=== PATIENT | male | born 1960 | race Caucasian/White ===

== ENCOUNTER 2016-10-19 21:14 | Emergency (ER) | payer MEDICARE ==
[~2016-10-19] VITALS: Ht 177.8 cm; Wt 91.6 kg
[~2016-10-19 21:14] MED LIST: ALBUTEROL0.09 MG/A2 IH; AMBIEN10 M1 PO; AMOXICILLIN500 MG PO; ASMANEX220 MCG INH; ASPIRIN81 M1 PO; AVELOX400 MG PO; CLARITIN10 MG PO; COMBIVENT1 AR1 IH; COMBIVENT1 ARO IH; CYMBALTA60 MG PO; DAYPRO600 M1 PO; DEXILANT60 MG PO; FISH OIL1 IU PO; FLOVENT0.22 MG/AC IH; IMDUR30 MG PO; ISOSORBIDE DINI30 MG PO; LEVAQUIN750 M1 PO; LOPRESSOR50 M1 PO; LORAZEPAM0.5 MG PO; MEDROL DOSEPAK4 MG PO; METOPROLOL TART50 M1 PO; MOTRIN800 MG PO; NAPROSYN500 MG PO; NITROSTAT0.4 MG PO; NITROSTAT0.4 MG SL; NORCO 325 MG-51 TAB PO; NOVAPLUS V0.09 MG/Ac IH; PARAFON FORTE500 MG PO; PRAVACHOL40 MG PO; PREDNICOT20 MG PO; PREDNISONE50 MG PO; PREVACID30 MG PO; PRILOSEC40 M1 PO; PRILOSEC40 MG PO; PROPAFENONE HC150 MG PO; ROBAXIN750 MG PO; SKELAXIN800 MG PO; TYLENOL325 M1 PO; VENTOLIN 02.5 MG/3 M INH; VIBRAMYCIN100 MG PO; VICODIN 5/500 505 MG; VICODIN 500 MG-1 TAB PO; ZITHROMAX Z PA250 MG PO
[2016-10-19 21:25] VITALS: BP 148/90
[2016-10-19] MEDS ORDERED: AUGMENTIN 875-875 MG PO (22:45)
== END 2016-10-19 22:05 | disposition home or self-care (01) ==
LOC: ED 21:14
DX: S61.250A Open bite of right index finger without damage to nail, initial encounter (principal); Z88.0 Allergy status to penicillin; Z88.1 Allergy status to other antibiotic agents; Z79.82 Long term (current) use of aspirin; Z79.899 Other long term (current) drug therapy; W54.0XXA Bitten by dog, initial encounter; Y93.9 Activity, unspecified; Y92.9 Unspecified place or not applicable; Y99.9 Unspecified external cause status

== ENCOUNTER 2017-02-28 17:53 | Emergency (ER) | payer MEDICARE ==
[~2017-02-28] VITALS: Ht 177.8 cm; Wt 90.7 kg
[~2017-02-28 17:53] MED LIST changes: +AUGMENTIN 875-875 MG PO
[2017-02-28 17:57] VITALS: BP 146/88
[2017-02-28] MEDS ORDERED: ELIQUIS5 M1 PO (17:57)
[2017-02-28 18:26] LABS: BASO % 0.4 % (0.0-1.0); EOS # 0.1 10*3/uL (0.0-0.4); EOS % 1.4 % (1.0-4.0); HEMATOCRIT 45.7 % (42.0-52.0); HEMOGLOBIN 15.1 g/dl (14.0-18.0); LYMPH # 1.6 10*3/uL (1.3-4.4); LYMPH % 22.5 % (27.0-41.0); MEAN CELL VOLUME 90.1 fl (80.0-94.0); MEAN CORPUSCULAR HGB 29.8 pg (27.0-31.0); MEAN PLATELET VOLUME 11.6 fl (9.6-12.3); MONO # 0.4 10*3/uL (0.1-1.0); MONO % 6.2 % (3.0-9.0); NEUT % 69.2 % (47.0-73.0); PLATELET COUNT AUTOMATED 207 10*3/uL (130-400); RED BLOOD COUNT 5.07 10*6/uL (4.50-5.90); RED CELL DISTRI WIDTH 14.2 % (0-14.5); WHITE BLOOD COUNT 7.2 10*3/uL (4.8-10.8)
[2017-02-28 18:49] LABS: ALBUMIN 3.5 gm/dl (3.1-4.5); BILIRUBIN, TOTAL 0.5 mg/dl (0.2-1.0); BUN 11 mg/dl (7-24); CARBON DIOXIDE 28 mmol/L (21-32); CHLORIDE 110 mmol/L (98-107); EST GLOM FILT AFRICAN AMERICAN > 60 ml/min; GLUCOSE 89 mg/dL (65-99); SGOT/AST 19 IU/L (3-35); SGPT/ALT 22 U/L (12-78); SODIUM 144 mmol/L (136-145); TOTAL PROTEIN 6.4 gm/dL (6.4-8.2); URIC ACID 7.7 mg/dL (3.5-7.2)
[2017-02-28 18:52] LABS: ALKALINE PHOSPHATASE 81 U/L (45-117)
[2017-02-28] MEDS ORDERED: PREDNISONE20 M1 PO (19:01)
== END 2017-02-28 18:13 | disposition home or self-care (01) ==
LOC: ED 17:53
PROVIDERS: Registered Nurse
DX: M10.9 Gout, unspecified (principal); R60.9 Edema, unspecified; Z90.49 Acquired absence of other specified parts of digestive tract; Z79.899 Other long term (current) drug therapy; Z79.82 Long term (current) use of aspirin; Z88.3 Allergy status to other anti-infective agents; Z88.0 Allergy status to penicillin; Z88.1 Allergy status to other antibiotic agents

== ENCOUNTER 2017-03-05 13:49 | Emergency (ER) | payer MEDICARE ==
[~2017-03-05] VITALS: Wt 90.7 kg
[~2017-03-05 13:49] MED LIST changes: +ELIQUIS5 M1 PO; +PREDNISONE20 M1 PO
[2017-03-05 13:55] VITALS: BP 139/76
[2017-03-05] MEDS ORDERED: CLARITIN10 MG PO (14:57)
== END 2017-03-05 15:04 | disposition home or self-care (01) ==
LOC: ED 13:49
DX: J06.9 Acute upper respiratory infection, unspecified (principal); M10.9 Gout, unspecified; J44.9 Chronic obstructive pulmonary disease, unspecified; Z88.0 Allergy status to penicillin; Z88.1 Allergy status to other antibiotic agents; Z79.82 Long term (current) use of aspirin; Z79.899 Other long term (current) drug therapy

== ENCOUNTER → 2017-09-08 | Emergency (ER) | payer MEDICARE ==
[~2017-09-08] VITALS: Ht 177.8 cm; Wt 90.7 kg
[~2017-09-08] MED LIST changes: +Zofran4 MG PO
[2017-09-08 11:11] VITALS: BP 109/66
[2017-09-08 12:06] LABS: HEMATOCRIT 48.6 % (42.0-52.0); HEMOGLOBIN 16.5 g/dl (14.0-18.0); MEAN CELL VOLUME 88.5 fl (80.0-94.0); MEAN CORPUSCULAR HGB 30.1 pg (27.0-31.0); MEAN PLATELET VOLUME 11.8 fl (9.6-12.3); PLATELET COUNT AUTOMATED 178 10*3/uL (130-400); RED BLOOD COUNT 5.49 10*6/uL (4.50-5.90); RED CELL DISTRI WIDTH 14.1 % (0-14.5)
[2017-09-08 12:22] LABS: ALBUMIN 3.7 gm/dl (3.1-4.5); ALKALINE PHOSPHATASE 91 U/L (45-117); BUN 15 mg/dl (7-24); CHLORIDE 108 mmol/L (98-107); CREATININE 1.14 mg/dL (0.70-1.30); LIPASE 109 U/L (73-393); POTASSIUM 4.1 mmol/L (3.5-5.1); SGOT/AST 14 IU/L (3-35); SGPT/ALT 21 U/L (12-78); SODIUM 143 mmol/L (136-145); TOTAL PROTEIN 6.9 gm/dL (6.4-8.2)
[2017-09-08 12:29] LABS: TOTAL CELLS COUNTED 100 #CELLS
[2017-09-08 12:30] LABS: PLATELET SUFFICIENCY NORMAL (NORMAL)
== END ==
LOC: ED 11:01
PROVIDERS: Physician Assistant
DX: K52.9 Noninfective gastroenteritis and colitis, unspecified (principal); Z88.0 Allergy status to penicillin; Z88.1 Allergy status to other antibiotic agents; Z88.8 Allergy status to other drugs, medicaments and biological substances; Z79.82 Long term (current) use of aspirin; Z79.899 Other long term (current) drug therapy; Z90.49 Acquired absence of other specified parts of digestive tract

== ENCOUNTER 2018-02-05 12:05 | Inpatient (IN) | payer MEDICARE ==
[~2018-02-05] VITALS: Ht 177.8 cm; Wt 90.7 kg
[2018-02-05 12:13] VITALS: BP 130/82
[2018-02-05 12:40] LABS: HEMATOCRIT 52.2 % (42.0-52.0); HEMOGLOBIN 17.7 g/dl (14.0-18.0); MEAN CELL VOLUME 89.2 fl (80.0-94.0); MEAN CORPUSCULAR HGB 30.3 pg (27.0-31.0); MEAN CORPUSCULAR HGB CONC 33.9 g/dl (33.0-37.0); MEAN PLATELET VOLUME 11.8 fl (9.6-12.3); PLATELET COUNT AUTOMATED 191 10*3/uL (130-400); RED BLOOD COUNT 5.85 10*6/uL (4.50-5.90); RED CELL DISTRI WIDTH 14.3 % (0-14.5)
[2018-02-05 12:53] LABS: ALBUMIN 4.3 gm/dl (3.1-4.5); ALKALINE PHOSPHATASE 95 U/L (45-117); BUN 20 mg/dl (7-24); CHLORIDE 106 mmol/L (98-107); CREATININE 1.16 mg/dL (0.70-1.30); LIPASE 158 U/L (73-393); POTASSIUM 3.8 mmol/L (3.5-5.1); SGOT/AST 19 IU/L (3-35); SGPT/ALT 22 U/L (12-78); SODIUM 142 mmol/L (136-145); TOTAL PROTEIN 7.6 gm/dL (6.4-8.2)
[2018-02-05 13:01] LABS: PLATELET SUFFICIENCY NORMAL (NORMAL); TOTAL CELLS COUNTED 100 #CELLS
[2018-02-05 14:15] VITALS: BP 111/72
[2018-02-05 14:43] LABS: ACT PARTIAL THROMBO TIME 25.9 SECONDS (20.8-31.5)
[2018-02-05 14:50] VITALS: BP 130/73
[2018-02-05 15:21] VITALS: BP 130/73
[2018-02-05 17:21] LABS: BILIRUBIN NEGATIVE (NEGATIVE); BLOOD NEGATIVE (NEGATIVE); CLARITY CLEAR (CLEAR); COLOR YELLOW (YELLOW); GLUCOSE NEGATIVE (NEGATIVE); KETONE TRACE (NEGATIVE); LEUKO ESTERASE NEGATIVE (NEGATIVE); NITRITE NEGATIVE (NEGATIVE); PH 5.5 (5.0-9.0); SPECIFIC GRAVITY 1.025 (1.005-1.030); UROBILINOGEN 0.2 E.U./dl (0.2-1.0)
[2018-02-05 17:34] LABS: MUCOUS TRACE
[2018-02-05 20:00] VITALS: BP 105/63
[2018-02-06] VITALS: BP 102/57
[2018-02-06 07:25] LABS: BASO % 0.3 % (0.0-1.0); EOS % 0.2 % (1.0-4.0); LYMPH # 0.7 10*3/uL (1.3-4.4); LYMPH % 10.8 % (27.0-41.0); MEAN CELL VOLUME 89.4 fl (80.0-94.0); MEAN CORPUSCULAR HGB 30.1 pg (27.0-31.0); MEAN CORPUSCULAR HGB CONC 33.7 g/dl (33.0-37.0); MEAN PLATELET VOLUME 11.4 fl (9.6-12.3); MONO # 0.7 10*3/uL (0.1-1.0); MONO % 10.8 % (3.0-9.0); NEUT # 4.7 10*3/uL (2.3-7.9); NEUT % 77.4 % (47.0-73.0); PLATELET COUNT AUTOMATED 138 10*3/uL (130-400); RED BLOOD COUNT 5.08 10*6/uL (4.50-5.90); RED CELL DISTRI WIDTH 14.5 % (0-14.5)
[2018-02-06 07:29] LABS: HEMATOCRIT 45.4 % (42.0-52.0); HEMOGLOBIN 15.3 g/dl (14.0-18.0)
[2018-02-06 07:40] LABS: BUN 14 mg/dl (7-24); CHLORIDE 110 mmol/L (98-107); CHOLESTEROL 157 mg/dL (<200); CREATININE 1.06 mg/dL (0.70-1.30); HDL CHOLESTEROL 30 mg/dl (40-60); LDL CHOLESTEROL 102 mg/dL (9-159); POTASSIUM 3.3 mmol/L (3.5-5.1); SODIUM 143 mmol/L (136-145); TRIGLYCERIDES 125 mg/dl (<150); VLDL CHOLESTEROL 25 mg/dL (6-40)
[2018-02-06 07:47] LABS: THYROID STIM HORMONE (HS) 0.379 uIU/ml (0.358-4.75)
[2018-02-06 08:00] VITALS: BP 98/62
[2018-02-06 08:00] LABS: ACT PARTIAL THROMBO TIME 28.2 SECONDS (20.8-31.5); INTERNATIONAL NORM RATIO 1.1 (2.0-3.5)
[2018-02-06 10:20] LABS: VITAMIN D, 25-HYDROXY 16.1 ng/mL (30-100)
[2018-02-06] MEDS ORDERED: Zofran4 MG SL (11:30)
== END 2018-02-06 11:57 | disposition home or self-care (01) | DRG 392 ==
LOC: ED 12:05 → 5E 14:21 → EDHOLD 14:21 → 5E 14:32
PROVIDERS: Emergency Medicine; Internal Medicine
DX: K52.9 Noninfective gastroenteritis and colitis, unspecified (principal); D68.59 Other primary thrombophilia; K21.9 Gastro-esophageal reflux disease without esophagitis; J44.9 Chronic obstructive pulmonary disease, unspecified; I25.10 Atherosclerotic heart disease of native coronary artery without angina pectoris; I10 Essential (primary) hypertension; D72.829 Elevated white blood cell count, unspecified; R73.9 Hyperglycemia, unspecified; E80.6 Other disorders of bilirubin metabolism; M10.9 Gout, unspecified; I48.0 Paroxysmal atrial fibrillation; Z51.5 Encounter for palliative care; Z66 Do not resuscitate; E78.5 Hyperlipidemia, unspecified; Z90.49 Acquired absence of other specified parts of digestive tract; Z79.01 Long term (current) use of anticoagulants; Z95.5 Presence of coronary angioplasty implant and graft; Z80.0 Family history of malignant neoplasm of digestive organs; Z88.0 Allergy status to penicillin; Z88.1 Allergy status to other antibiotic agents; Z88.8 Allergy status to other drugs, medicaments and biological substances; Z79.82 Long term (current) use of aspirin; Z79.899 Other long term (current) drug therapy; Z90.89 Acquired absence of other organs

== ENCOUNTER → 2018-08-11 | Outpatient (CLI) | payer MEDICARE ==
[~2018-08-11] MED LIST changes: +Zofran4 MG SL
== END | disposition home or self-care (01) ==
LOC: ORTHO 08:15
DX: M25.561 Pain in right knee (principal)

== ENCOUNTER → 2018-09-01 | Outpatient (CLI) | payer MEDICARE | END | disposition home or self-care (01) | LOC: MRI 13:00 | DX: M23.41 Loose body in knee, right knee (principal); R60.0 Localized edema ==

== ENCOUNTER 2020-02-20 13:03 | Emergency (ER) | payer MEDICARE ==
[~2020-02-20] VITALS: Ht 177.8 cm; Wt 90.7 kg
[2020-02-20 13:25] VITALS: BP 123/83
[2020-02-20] MEDS ORDERED: COLACE 2-IN-11 EACH PO (13:54)
[2020-02-20] MEDS ORDERED: PREPARATION H26 GM T (13:54)
== END 2020-02-20 14:57 | disposition home or self-care (01) ==
LOC: ED 13:03
DX: K62.89 Other specified diseases of anus and rectum (principal); K64.9 Unspecified hemorrhoids; I10 Essential (primary) hypertension; I48.91 Unspecified atrial fibrillation; J44.9 Chronic obstructive pulmonary disease, unspecified; E78.5 Hyperlipidemia, unspecified; K21.9 Gastro-esophageal reflux disease without esophagitis; M10.9 Gout, unspecified; Z88.0 Allergy status to penicillin; Z88.8 Allergy status to other drugs, medicaments and biological substances; Z79.899 Other long term (current) drug therapy; Z79.82 Long term (current) use of aspirin

== ENCOUNTER → 2020-07-29 | Outpatient (CLI) | payer MEDICARE ==
[~2020-07-29] MED LIST changes: +COLACE 2-IN-11 EACH PO; +COLCRYS0.6 M1 PO; +PREPARATION H26 GM T
[2020-07-29 10:07] LABS: HEMATOCRIT 47.7 % (42.0-52.0); MEAN CELL VOLUME 87.5 fl (80.0-94.0); MEAN CORPUSCULAR HGB 28.1 pg (27.0-31.0); MEAN CORPUSCULAR HGB CONC 32.1 g/dl (33.0-37.0); MEAN PLATELET VOLUME 11.5 fl (9.6-12.3); RED BLOOD COUNT 5.45 10*6/uL (4.50-5.90); RED CELL DISTRI WIDTH 14.6 % (0-14.5)
[2020-07-29 10:49] LABS: ALBUMIN 3.5 gm/dl (3.1-4.5); ALKALINE PHOSPHATASE 105 U/L (45-117); BUN 19 mg/dl (7-24); CHLORIDE 107 mmol/L (98-107); CHOLESTEROL 190 mg/dL (<200); CREATININE 1.27 mg/dL (0.70-1.30); HDL CHOLESTEROL 43 mg/dl (40-60); LDL CHOLESTEROL 110 mg/dL (9-159); POTASSIUM 3.8 mmol/L (3.5-5.1); SGOT/AST 17 IU/L (3-35); SGPT/ALT 25 U/L (12-78); SODIUM 140 mmol/L (136-145); TOTAL PROTEIN 7.5 gm/dL (6.4-8.2); TRIGLYCERIDES 183 mg/dl (<150); VLDL CHOLESTEROL 37 mg/dL (6-40)
== END | disposition home or self-care (01) ==
LOC: LAB 09:28
PROVIDERS: ATTEND Family Medicine
DX: Z12.5 Encounter for screening for malignant neoplasm of prostate (principal); J44.9 Chronic obstructive pulmonary disease, unspecified; E55.9 Vitamin D deficiency, unspecified; R53.83 Other fatigue; E74.9 Disorder of carbohydrate metabolism, unspecified; K21.9 Gastro-esophageal reflux disease without esophagitis; I10 Essential (primary) hypertension; Z79.899 Other long term (current) drug therapy

== ENCOUNTER 2020-08-13 12:48 | Emergency (ER) | payer MEDICARE ==
[~2020-08-13] VITALS: Ht 177.8 cm; Wt 102.1 kg
[~2020-08-13 12:48] MED LIST changes: -COLCRYS0.6 M1 PO
[2020-08-13 13:14] VITALS: BP 123/79
[2020-08-13] MEDS ORDERED: COLCRYS0.6 M1 PO (13:45)
[2020-08-13] MEDS ORDERED: TYLENOL325 M1 PO (13:45)
== END 2020-08-13 14:05 | disposition home or self-care (01) ==
LOC: ED 12:48
DX: M10.9 Gout, unspecified (principal); I48.91 Unspecified atrial fibrillation; J44.9 Chronic obstructive pulmonary disease, unspecified; K21.9 Gastro-esophageal reflux disease without esophagitis; E78.5 Hyperlipidemia, unspecified; Z88.0 Allergy status to penicillin; Z88.8 Allergy status to other drugs, medicaments and biological substances; Z79.899 Other long term (current) drug therapy; Z79.82 Long term (current) use of aspirin

== ENCOUNTER 2022-01-21 08:31 | Emergency (ER) | payer MEDICARE ==
[~2022-01-21] VITALS: Wt 99.8 kg
[~2022-01-21 08:31] MED LIST changes: +COLCRYS0.6 M1 PO
[2022-01-21 08:39] VITALS: BP 135/83
[2022-01-21] MEDS ORDERED: ALLOPURINOL300 MG PO (08:47)
[2022-01-21] MEDS ORDERED: GABAPENTIN100 M2 PO (08:48)
[2022-01-21] MEDS ORDERED: HYDROCODONE-AC1 EAC1 PO (11:04)
== END 2022-01-21 11:21 | disposition home or self-care (01) ==
LOC: ED 08:31
DX: S29.9XXA Unspecified injury of thorax, initial encounter (principal); J44.9 Chronic obstructive pulmonary disease, unspecified; I48.91 Unspecified atrial fibrillation; I10 Essential (primary) hypertension; E78.5 Hyperlipidemia, unspecified; M10.9 Gout, unspecified; K21.9 Gastro-esophageal reflux disease without esophagitis; I25.10 Atherosclerotic heart disease of native coronary artery without angina pectoris; Z88.0 Allergy status to penicillin; Z88.1 Allergy status to other antibiotic agents; Z79.899 Other long term (current) drug therapy; Z79.82 Long term (current) use of aspirin; Z90.49 Acquired absence of other specified parts of digestive tract; Z98.890 Other specified postprocedural states; W22.8XXA Striking against or struck by other objects, initial encounter; Y93.89 Activity, other specified; Y92.89 Other specified places as the place of occurrence of the external cause; Y99.8 Other external cause status

== ENCOUNTER 2022-04-10 13:21 | Emergency (ER) | payer OTHER ==
[~2022-04-10] VITALS: Ht 177.8 cm; Wt 99.8 kg
[~2022-04-10 13:21] MED LIST changes: +ALLOPURINOL300 MG PO; +GABAPENTIN100 M2 PO; +HYDROCODONE-AC1 EAC1 PO
[2022-04-10 13:30] VITALS: BP 131/89
[2022-04-10] MEDS ORDERED: HYDROCODONE-AC1 EAC1 PO (21:53)
== END 2022-04-10 22:12 | disposition home or self-care (01) ==
LOC: ED 13:21
DX: S20.311A Abrasion of right front wall of thorax, initial encounter (principal); Z90.49 Acquired absence of other specified parts of digestive tract; Z79.899 Other long term (current) drug therapy; Z79.82 Long term (current) use of aspirin; Z88.0 Allergy status to penicillin; Z88.1 Allergy status to other antibiotic agents; W01.198A Fall on same level from slipping, tripping and stumbling with subsequent striking against other object, initial encounter; Y93.01 Activity, walking, marching and hiking; Y92.89 Other specified places as the place of occurrence of the external cause; Y99.9 Unspecified external cause status

== ENCOUNTER 2023-03-17 23:57 | Inpatient (IN) | payer OTHER ==
[~2023-03-17] VITALS: Ht 177.8 cm; Wt 103.0 kg
[2023-03-18] VITALS (7 sets, daily range): BP systolic 94–123; BP diastolic 50–76
[2023-03-18 00:35] LABS: BASO # 0.1 10*3/uL (0.0-0.1); BASO % 0.8 % (0.0-1.0); EOS # 0.4 10*3/uL (0.0-0.4); EOS % 5.6 % (1.0-4.0); HEMATOCRIT 38.7 % (42.0-52.0); LYMPH # 1.1 10*3/uL (1.3-4.4); LYMPH % 15.9 % (27.0-41.0); MEAN CELL VOLUME 87.8 fl (80.0-94.0); MEAN CORPUSCULAR HGB CONC 30.7 g/dl (33.0-37.0); MEAN PLATELET VOLUME 10.5 fl (9.6-12.3); MONO # 0.4 10*3/uL (0.1-1.0); MONO % 5.9 % (3.0-9.0); NEUT # 5.1 10*3/uL (2.3-7.9); NEUT % 71.2 % (47.0-73.0); PLATELET COUNT AUTOMATED 332 10*3/uL (130-400); RED BLOOD COUNT 4.41 10*6/uL (4.50-5.90); RED CELL DISTRI WIDTH 15.9 % (0-14.5); WHITE BLOOD COUNT 7.2 10*3/uL (4.8-10.8)
[2023-03-18 00:46] LABS: ACT PARTIAL THROMBO TIME 35.9 SECONDS (20.0-32.1); INTERNATIONAL NORM RATIO 1.7 (2.0-3.5)
[2023-03-18 01:01] LABS: ALKALINE PHOSPHATASE 106 U/L (46-116); BUN 9 mg/dl (9-23); CHLORIDE 105 mmol/L (98-107); CPK 21 U/L (34-171); FREE T4 1.02 ng/dl (0.89-1.76); LIPASE 51 U/L (12-53); POTASSIUM 4.1 mmol/L (3.4-5.1); SGPT/ALT 32 U/L (10-49); THYROID STIM HORMONE (HS) 5.106 uIU/ml (0.550-4.780); TOTAL PROTEIN 6.2 gm/dL (6.0-8.0)
[2023-03-18 01:39] LABS: BILIRUBIN Negative (Negative); BLOOD Negative (Negative); CLARITY Clear (Clear); COLOR Yellow (Yellow); GLUCOSE Negative (Negative); KETONE Negative (Negative); LEUKO ESTERASE 2+ (Negative); NITRITE Negative (Negative); PH 5.5 (4.5-8.0)
[2023-03-18 01:50] LABS: BACTERIA 1+; WBC 31-40 wbc/hpf (0-5)
[2023-03-18] MEDS ORDERED: AMIODARONE HYD200 MG PO (04:54)
[2023-03-18] MEDS ORDERED: FUROSEMIDE20 M1 PO (04:56)
[2023-03-18] MEDS ORDERED: LIPITOR40 MG PO (06:15)
[2023-03-18] MEDS ORDERED: FIRVANQ25 MG/1 ML PO (06:16)
[2023-03-18] MEDS ORDERED: FLOMAX0.4 MG PO (06:16)
[2023-03-18] MEDS ORDERED: LEXAPRO10 MG PO (06:18)
[2023-03-18] MEDS ORDERED: MUCINEX D ER 61 EACH PO (06:20)
[2023-03-18] MEDS ORDERED: POTASSIUM CHLO20 ME3 PO (06:22)
[2023-03-18] MEDS ORDERED: VISTARIL50 MG PO (06:23)
[2023-03-18] MEDS ORDERED: Coumadin3 MG PO (06:24)
[2023-03-18] MEDS ORDERED: ONDANSETRON4 MG SL (06:25)
[2023-03-19] VITALS: BP 123/60
[2023-03-19 05:37] LABS: ALKALINE PHOSPHATASE 92 U/L (46-116); BUN 6 mg/dl (9-23); CHLORIDE 108 mmol/L (98-107); CHOLESTEROL 139 mg/dL (<200); LDL CHOLESTEROL 68 mg/dL (9-159); POTASSIUM 4.3 mmol/L (3.4-5.1); SGPT/ALT 25 U/L (10-49); TOTAL PROTEIN 5.8 gm/dL (6.0-8.0); TRIGLYCERIDES 209 mg/dl (<150)
[2023-03-19 05:40] LABS: VITAMIN D, 25-HYDROXY 20.1 ng/mL (30-100)
[2023-03-19 06:10] LABS: INTERNATIONAL NORM RATIO 1.6 (2.0-3.5)
[2023-03-19 06:18] LABS: BASO % 0.9 % (0.0-1.0); EOS # 0.3 10*3/uL (0.0-0.4); EOS % 6.3 % (1.0-4.0); HEMATOCRIT 36.1 % (42.0-52.0); LYMPH % 22.2 % (27.0-41.0); MEAN CELL VOLUME 88.7 fl (80.0-94.0); MEAN CORPUSCULAR HGB 26.8 pg (27.0-31.0); MEAN CORPUSCULAR HGB CONC 30.2 g/dl (33.0-37.0); MEAN PLATELET VOLUME 10.8 fl (9.6-12.3); MONO # 0.5 10*3/uL (0.1-1.0); MONO % 10.6 % (3.0-9.0); NEUT # 2.6 10*3/uL (2.3-7.9); NEUT % 59.8 % (47.0-73.0); PLATELET COUNT AUTOMATED 273 10*3/uL (130-400); RED BLOOD COUNT 4.07 10*6/uL (4.50-5.90); RED CELL DISTRI WIDTH 15.9 % (0-14.5); WHITE BLOOD COUNT 4.4 10*3/uL (4.8-10.8)
[2023-03-19 08:00] VITALS: BP 134/84
[2023-03-19 12:00] VITALS: BP 112/68
[2023-03-19 16:00] VITALS: BP 106/69
[2023-03-19 20:00] VITALS: BP 100/76
[2023-03-20] VITALS: BP 110/54
[2023-03-20 08:00] VITALS: BP 122/85
[2023-03-20 09:03] LABS: INTERNATIONAL NORM RATIO 1.4 (2.0-3.5)
[2023-03-20 12:00] VITALS: BP 127/80
[2023-03-20] MEDS ORDERED: VITAMIN D350 MCG PO (13:22)
[2023-03-20] MEDS ORDERED: ALLOPURINOL300 MG PO (13:22)
[2023-03-20] MEDS ORDERED: AMIODARONE HYD200 MG PO (13:22)
[2023-03-20] MEDS ORDERED: FUROSEMIDE20 M1 PO (13:22)
[2023-03-20] MEDS ORDERED: PANTOPRAZOLE SO20 MG PO (13:22)
[2023-03-20] MEDS ORDERED: ELIQUIS5 M1 PO (13:22)
[2023-03-20] MEDS ORDERED: FLORASTOR250 MG PO (13:22)
[2023-03-20] MEDS ORDERED: LIPITOR40 MG PO (13:22)
[2023-03-20] MEDS ORDERED: LOPRESSOR25 MG PO (13:22)
[2023-03-20] MEDS ORDERED: VANCOMYCIN HCL125 MG PO (13:22)
[2023-03-20] MEDS ORDERED: POTASSIUM CHLO20 ME3 PO (13:22)
[2023-03-20] MEDS ORDERED: GABAPENTIN100 M2 PO (13:22)
[2023-03-20] MEDS ORDERED: FLOMAX0.4 MG PO (13:22)
== END 2023-03-20 13:54 | disposition home or self-care (01) | DRG 445 ==
LOC: ED 23:57 → 5E 03-18 03:53 → EDHOLD 03-18 03:53 → 5E 03-18 04:52
PROVIDERS: Emergency Medicine; Internal Medicine; Student in an Organized Health Care Education/Training Program; ADMIT Internal Medicine; ATTEND Internal Medicine
DX: K80.00 Calculus of gallbladder with acute cholecystitis without obstruction (principal); A04.72 Enterocolitis due to Clostridium difficile, not specified as recurrent; E44.0 Moderate protein-calorie malnutrition; N30.00 Acute cystitis without hematuria; K21.9 Gastro-esophageal reflux disease without esophagitis; Z66 Do not resuscitate; D64.9 Anemia, unspecified; R73.9 Hyperglycemia, unspecified; I34.0 Nonrheumatic mitral (valve) insufficiency; E78.5 Hyperlipidemia, unspecified; I48.0 Paroxysmal atrial fibrillation; I48.91 Unspecified atrial fibrillation; R00.1 Bradycardia, unspecified; N40.0 Benign prostatic hyperplasia without lower urinary tract symptoms; I25.118 Atherosclerotic heart disease of native coronary artery with other forms of angina pectoris; Z88.0 Allergy status to penicillin; Z88.1 Allergy status to other antibiotic agents; Z88.8 Allergy status to other drugs, medicaments and biological substances; Z79.1 Long term (current) use of non-steroidal anti-inflammatories (NSAID); Z79.899 Other long term (current) drug therapy; Z79.82 Long term (current) use of aspirin; Z95.1 Presence of aortocoronary bypass graft; Z90.49 Acquired absence of other specified parts of digestive tract; Z80.0 Family history of malignant neoplasm of digestive organs; Z79.01 Long term (current) use of anticoagulants

== ENCOUNTER 2024-01-18 18:34 | Emergency (ER) | payer OTHER ==
[~2024-01-18] VITALS: Ht 177.8 cm; Wt 110.2 kg
[~2024-01-18 18:34] MED LIST changes: +AMIODARONE HYD200 MG PO; +Coumadin3 MG PO; +FIRVANQ25 MG/1 ML PO; +FLOMAX0.4 MG PO; +FLORASTOR250 MG PO; +FUROSEMIDE20 M1 PO; +LEXAPRO10 MG PO; +LIPITOR40 MG PO; +LOPRESSOR25 MG PO; +MUCINEX D ER 61 EACH PO; +ONDANSETRON4 MG SL; +PANTOPRAZOLE SO20 MG PO; +POTASSIUM CHLO20 ME3 PO; +VANCOMYCIN HCL125 MG PO; +VISTARIL50 MG PO; +VITAMIN D350 MCG PO
[2024-01-18] MEDS ORDERED: MORPHINE Sulfate 2 MG/ML SYR IV ONE ×2 (19:00→20:35)
[2024-01-18 19:17] LABS: BASO % 0.3 % (0.0-1.0); EOS # 0.1 10*3/uL (0.0-0.4); EOS % 0.9 % (1.0-4.0); HEMATOCRIT 34.7 % (42.0-52.0); LYMPH # 0.6 10*3/uL (1.3-4.4); LYMPH % 9.8 % (27.0-41.0); MEAN CELL VOLUME 80.9 fl (80.0-94.0); MEAN CORPUSCULAR HGB 23.1 pg (27.0-31.0); MEAN CORPUSCULAR HGB CONC 28.5 g/dl (33.0-37.0); MONO # 0.5 10*3/uL (0.1-1.0); MONO % 7.6 % (3.0-9.0); NEUT # 5.3 10*3/uL (2.3-7.9); NEUT % 80.9 % (47.0-73.0); PLATELET COUNT AUTOMATED 336 10*3/uL (130-400); RED BLOOD COUNT 4.29 10*6/uL (4.50-5.90); RED CELL DISTRI WIDTH 17.9 % (0-14.5); WHITE BLOOD COUNT 6.5 10*3/uL (4.8-10.8)
[2024-01-18 19:34] LABS: ALKALINE PHOSPHATASE 98 U/L (46-116); BUN 8 mg/dl (9-23); CHLORIDE 107 mmol/L (98-107); SGPT/ALT 14 U/L (5-49)
[2024-01-18 19:35] LABS: ACT PARTIAL THROMBO TIME 31.4 SECONDS (20.0-32.1)
[2024-01-18] MEDS ORDERED: LEVOFLOXACIN750 M2 PO (20:21)
[2024-01-18] MEDS ORDERED: LEVOFLOXACIN 750 MG TAB PO ONE (20:25)
[2024-01-18 21:15] VITALS: BP 130/88
== END 2024-01-18 22:20 | disposition home or self-care (01) ==
LOC: ED 18:34
PROVIDERS: Nurse Practitioner Family
DX: J18.9 Pneumonia, unspecified organism (principal); M25.511 Pain in right shoulder; I25.10 Atherosclerotic heart disease of native coronary artery without angina pectoris; D64.9 Anemia, unspecified; R73.9 Hyperglycemia, unspecified; I48.91 Unspecified atrial fibrillation; M19.90 Unspecified osteoarthritis, unspecified site; J44.9 Chronic obstructive pulmonary disease, unspecified; F32.A Depression, unspecified; I10 Essential (primary) hypertension; K21.9 Gastro-esophageal reflux disease without esophagitis; M10.9 Gout, unspecified; E78.5 Hyperlipidemia, unspecified; J45.909 Unspecified asthma, uncomplicated; F41.9 Anxiety disorder, unspecified; I25.2 Old myocardial infarction; Z88.0 Allergy status to penicillin; Z88.1 Allergy status to other antibiotic agents; Z88.8 Allergy status to other drugs, medicaments and biological substances; Z90.49 Acquired absence of other specified parts of digestive tract; Z98.890 Other specified postprocedural states; Z95.5 Presence of coronary angioplasty implant and graft

== ENCOUNTER 2024-05-01 12:17 | Emergency (ER) | payer OTHER ==
[~2024-05-01] VITALS: Ht 177.8 cm; Wt 99.3 kg
[~2024-05-01 12:17] MED LIST changes: +LEVOFLOXACIN750 M2 PO
[2024-05-01] MEDS ORDERED: Metoclopramide Hydrochloride 10 MG/2 ML AMP IV ONE (12:25)
[2024-05-01] MEDS ORDERED: Ketorolac Tromethamine 15 MG/ML VIAL IV ONE (12:25)
[2024-05-01] MEDS ORDERED: SODIUM CHLORIDE 0.9% 1,000 ML IV ONE (12:25)
[2024-05-01] MEDS ORDERED: diphenhydrAMINE hydrochloride 50 MG/ML VIAL IV ONE (12:25)
[2024-05-01 12:33] VITALS: BP 109/56
[2024-05-01 12:38] LABS: BASO % 0.6 % (0.0-1.0); EOS # 0.1 10*3/uL (0.0-0.4); EOS % 1.2 % (1.0-4.0); HEMATOCRIT 38.1 % (42.0-52.0); LYMPH # 0.8 10*3/uL (1.3-4.4); MEAN CELL VOLUME 80.7 fl (80.0-94.0); MEAN CORPUSCULAR HGB 24.2 pg (27.0-31.0); MEAN CORPUSCULAR HGB CONC 29.9 g/dl (33.0-37.0); MEAN PLATELET VOLUME 10.7 fl (9.6-12.3); MONO # 0.4 10*3/uL (0.1-1.0); MONO % 8.7 % (3.0-9.0); NEUT # 3.7 10*3/uL (2.3-7.9); NEUT % 73.1 % (47.0-73.0); PLATELET COUNT AUTOMATED 201 10*3/uL (130-400); RED BLOOD COUNT 4.72 10*6/uL (4.50-5.90); RED CELL DISTRI WIDTH 16.2 % (0-14.5); WHITE BLOOD COUNT 5.1 10*3/uL (4.8-10.8)
[2024-05-01 13:02] LABS: ALKALINE PHOSPHATASE 130 U/L (46-116); BUN 12 mg/dl (9-23); CHLORIDE 108 mmol/L (98-107); POTASSIUM 4.1 mmol/L (3.4-5.1); SGPT/ALT 15 U/L (5-49); TOTAL PROTEIN 6.3 gm/dL (6.0-8.0)
[2024-05-01] MEDS ORDERED: REGLAN10 M1 PO (14:39)
== END 2024-05-01 14:45 | disposition home or self-care (01) ==
LOC: ED 12:17
PROVIDERS: Emergency Medicine
DX: R51.9 Headache, unspecified (principal); M79.602 Pain in left arm; J44.9 Chronic obstructive pulmonary disease, unspecified; I48.91 Unspecified atrial fibrillation; I10 Essential (primary) hypertension; E78.5 Hyperlipidemia, unspecified; K21.9 Gastro-esophageal reflux disease without esophagitis; J45.909 Unspecified asthma, uncomplicated; F41.9 Anxiety disorder, unspecified; F32.A Depression, unspecified; I25.2 Old myocardial infarction; Z88.0 Allergy status to penicillin; Z88.1 Allergy status to other antibiotic agents; Z88.8 Allergy status to other drugs, medicaments and biological substances; Z90.49 Acquired absence of other specified parts of digestive tract; Z95.5 Presence of coronary angioplasty implant and graft; Z98.890 Other specified postprocedural states

== ENCOUNTER 2024-09-20 10:44 | Emergency (ER) | payer OTHER ==
[~2024-09-20] VITALS: Ht 177.8 cm; Wt 104.3 kg
[~2024-09-20 10:44] MED LIST changes: +REGLAN10 M1 PO
[2024-09-20 10:50] VITALS: BP 133/70
[2024-09-20 11:04] LABS: BILIRUBIN Negative (Negative); BLOOD 3+ (Negative); CLARITY Turbid (Clear); COLOR Dark Yellow (Yellow); GLUCOSE Negative (Negative); KETONE Trace (Negative); LEUKO ESTERASE 3+ (Negative); NITRITE Positive (Negative); SPECIFIC GRAVITY 1.025 (1.001-1.030)
[2024-09-20 11:15] LABS: BACTERIA 4+; WBC TNTC wbc/hpf (0-5)
[2024-09-20] MEDS ORDERED: CIPROFLOXACIN 200 ML IV ONE (11:20)
[2024-09-20 11:35] LABS: BASO % 0.2 % (0.0-1.0); EOS % 0.1 % (1.0-4.0); HEMATOCRIT 38.4 % (42.0-52.0); MEAN CELL VOLUME 77.1 fl (80.0-94.0); MEAN CORPUSCULAR HGB 22.5 pg (27.0-31.0); MEAN CORPUSCULAR HGB CONC 29.2 g/dl (33.0-37.0); MONO # 1.3 10*3/uL (0.1-1.0); MONO % 10.4 % (3.0-9.0); NEUT # 10.7 10*3/uL (2.3-7.9); NEUT % 83.6 % (47.0-73.0); PLATELET COUNT AUTOMATED 176 10*3/uL (130-400); RED BLOOD COUNT 4.98 10*6/uL (4.50-5.90); WHITE BLOOD COUNT 12.8 10*3/uL (4.8-10.8)
[2024-09-20 11:57] LABS: ALKALINE PHOSPHATASE 128 U/L (46-116); BUN 10 mg/dl (9-23); CHLORIDE 107 mmol/L (98-107); LIPASE 25 U/L (12-53); POTASSIUM 3.8 mmol/L (3.4-5.1); SGPT/ALT 15 U/L (5-49); TOTAL PROTEIN 6.5 gm/dL (6.0-8.0)
[2024-09-20] MEDS ORDERED: METHOCARBAMOL 500 MG TAB PO ONE (13:55)
[2024-09-20] MEDS ORDERED: MORPHINE Sulfate 2 MG/ML SYR IV ONE (13:55)
[2024-09-20] MEDS ORDERED: CIPRO500 MG PO (14:32)
[2024-09-20] MEDS ORDERED: Ciprofloxacin Hydrochloride 500 MG TAB PO ONE (14:35)
== END 2024-09-20 14:43 | disposition home or self-care (01) ==
LOC: ED 10:44
PROVIDERS: Internal Medicine
DX: N39.0 Urinary tract infection, site not specified (principal); I48.91 Unspecified atrial fibrillation; I25.10 Atherosclerotic heart disease of native coronary artery without angina pectoris; J45.909 Unspecified asthma, uncomplicated; F32.A Depression, unspecified; I25.2 Old myocardial infarction; F41.9 Anxiety disorder, unspecified; Z88.0 Allergy status to penicillin; Z88.1 Allergy status to other antibiotic agents; Z88.8 Allergy status to other drugs, medicaments and biological substances; Z90.49 Acquired absence of other specified parts of digestive tract; Z98.890 Other specified postprocedural states; Z95.1 Presence of aortocoronary bypass graft

== ENCOUNTER 2024-10-27 09:32 | Emergency (ER) | payer OTHER ==
[~2024-10-27] VITALS: Ht 177.8 cm; Wt 105.9 kg
[~2024-10-27 09:32] MED LIST changes: +CIPRO500 MG PO
[2024-10-27] MEDS ORDERED: Acetaminophen/Oxycodone 5 MG/325 MG TABLET PO ONE (09:40)
[2024-10-27 09:42] VITALS: BP 137/67
[2024-10-27] MEDS ORDERED: IBUPROFEN 400 MG TAB PO ONE (12:10)
[2024-10-27] MEDS ORDERED: PERCOCET 5-3251 EACH PO (12:55)
== END 2024-10-27 14:19 | disposition home or self-care (01) ==
LOC: ED 09:32
DX: S22.32XA Fracture of one rib, left side, initial encounter for closed fracture (principal); R51.9 Headache, unspecified; Z88.0 Allergy status to penicillin; Z88.1 Allergy status to other antibiotic agents; Z79.2 Long term (current) use of antibiotics; Z79.899 Other long term (current) drug therapy; Z90.49 Acquired absence of other specified parts of digestive tract; Z95.5 Presence of coronary angioplasty implant and graft; V43.52XA Car driver injured in collision with other type car in traffic accident, initial encounter; Y93.I9 Activity, other involving external motion; Y92.488 Other paved roadways as the place of occurrence of the external cause; Y99.8 Other external cause status

== ENCOUNTER 2025-02-27 11:12 | Emergency (ER) | payer OTHER ==
[~2025-02-27] VITALS: Ht 177.8 cm; Wt 104.3 kg
[~2025-02-27 11:12] MED LIST changes: +PERCOCET 5-3251 EACH PO
[2025-02-27 11:24] VITALS: BP 129/63
[2025-02-27] MEDS ORDERED: Tetracaine Hydrochloride 0.5% 4 ML BOT OPH ONE (11:35)
[2025-02-27] MEDS ORDERED: LISSAMINE GREEN 1.5 MG STRIP OP ONE (11:35)
[2025-02-27] MEDS ORDERED: OFLOXACIN 0.3% 5 ML BOTTLE OPH ONE (11:50)
== END 2025-02-27 12:07 | disposition home or self-care (01) ==
LOC: ED 11:12
DX: H10.9 Unspecified conjunctivitis (principal); I25.10 Atherosclerotic heart disease of native coronary artery without angina pectoris; I48.91 Unspecified atrial fibrillation; K21.9 Gastro-esophageal reflux disease without esophagitis; I10 Essential (primary) hypertension; E78.5 Hyperlipidemia, unspecified; Z95.5 Presence of coronary angioplasty implant and graft; Z79.01 Long term (current) use of anticoagulants; Z88.0 Allergy status to penicillin; Z88.1 Allergy status to other antibiotic agents; Z79.899 Other long term (current) drug therapy; Z90.49 Acquired absence of other specified parts of digestive tract

== ENCOUNTER 2025-05-08 11:47 | Emergency (ER) | payer OTHER ==
[~2025-05-08] VITALS: Ht 177.8 cm; Wt 104.3 kg
[2025-05-08 12:15] VITALS: BP 129/74
[2025-05-08 12:34] LABS: BASO # 0.0 10*3/uL (0.0-0.1); BASO % 0.3 % (0.0-1.0); EOS # 0.1 10*3/uL (0.0-0.4); EOS % 0.5 % (1.0-4.0); MEAN CELL VOLUME 78.9 fl (80.0-94.0); MEAN CORPUSCULAR HGB 22.9 pg (27.0-31.0); MEAN PLATELET VOLUME 10.7 fl (9.6-12.3); MONO # 0.8 10*3/uL (0.1-1.0); MONO % 8.0 % (3.0-9.0); NEUT # 8.5 10*3/uL (2.3-7.9); NEUT % 81.4 % (47.0-73.0); NUCLEATED RED BLOOD CELL 0.0 % (0.0-0.0); NUCLEATED RED BLOOD CELL 0.0 10*3/uL (0.0-0.0); PLATELET COUNT AUTOMATED 257 10*3/uL (130-400); RED CELL DISTRI WIDTH 18.3 % (0-14.5)
[2025-05-08 12:44] LABS: ACT PARTIAL THROMBO TIME 31.2 SECONDS (20.0-32.1)
[2025-05-08 13:01] LABS: FREE T4 1.37 ng/dl (0.89-1.76)
[2025-05-08 13:09] LABS: BUN 11 mg/dl (9-23)
[2025-05-08] MEDS ORDERED: MG-AL HYDROXIDE/SIMETICONE 30 ML UDC PO STA (14:51)
[2025-05-08] MEDS ORDERED: Dicyclomine Hydrochloride 20 MG/10 ML OSYR PO STA (14:51)
[2025-05-08] MEDS ORDERED: GAS-X125 MG PO (17:13)
== END 2025-05-08 17:32 | disposition home or self-care (01) ==
LOC: ED 11:47
PROVIDERS: Internal Medicine
DX: R14.1 Gas pain (principal); Z88.0 Allergy status to penicillin; Z88.1 Allergy status to other antibiotic agents; Z79.899 Other long term (current) drug therapy; Z95.5 Presence of coronary angioplasty implant and graft; Z90.49 Acquired absence of other specified parts of digestive tract